=== PATIENT | male | born 1965 | race Two or more races ===

== ENCOUNTER 2016-08-05 15:40 | Emergency (ER) | payer MEDICAID ==
[~2016-08-05] VITALS: Ht 170.2 cm; Wt 86.6 kg
[~2016-08-05 15:40] MED LIST: COLACE100 MG PO; KEFLEX500 MG PO; LAC PO; METFORMIN HCL500 MG PO; MOTRIN800 MG PO; NORCO1 TA2 PO; SIMVASTATIN10 M1 PO
[2016-08-05 19:04] VITALS: BP 140/105
== END 2016-08-05 19:04 | disposition home or self-care (01) ==
LOC: ED 15:40
DX: R07.89 Other chest pain (principal); I10 Essential (primary) hypertension